=== PATIENT | female | born 1945 | race Two or more races ===

== ENCOUNTER 2017-10-03 08:46 | Outpatient (CLI) | payer OTHER | END 2017-10-03 08:54 | disposition home or self-care (01) | LOC: SONOGRAMA 08:46 | DX: E04.8 Other specified nontoxic goiter (principal) ==

== ENCOUNTER 2017-10-03 09:56 | Outpatient (CLI) | payer OTHER | END 2017-10-03 10:30 | disposition home or self-care (01) | LOC: NUCLEAR 09:56 | DX: E21.2 Other hyperparathyroidism (principal) | CPT/HCPCS: 78070; A9500 ==

== ENCOUNTER 2017-10-25 11:46 | Outpatient (CLI) | payer OTHER | END 2017-10-25 17:00 | disposition home or self-care (01) | LOC: RAD 11:46 | DX: S32.028A Other fracture of second lumbar vertebra, initial encounter for closed fracture (principal) ==

== ENCOUNTER 2017-12-02 10:38 | Outpatient (CLI) | payer OTHER | END 2017-12-02 10:43 | disposition home or self-care (01) | LOC: RAD 10:38 | DX: M54.5 Low back pain (principal); S32.000A Wedge compression fracture of unspecified lumbar vertebra, initial encounter for closed fracture ==

== ENCOUNTER 2018-06-16 11:48 | Outpatient (CLI) | payer OTHER | END 2018-06-16 12:59 | disposition home or self-care (01) | LOC: RAD 11:48 | DX: M05.79 Rheumatoid arthritis with rheumatoid factor of multiple sites without organ or systems involvement (principal) ==

== ENCOUNTER 2021-03-30 15:45 | Emergency (ER) | payer OTHER ==
[~2021-03-30] VITALS: Ht 154.9 cm; Wt 76.7 kg
[2021-03-30] MEDS ORDERED: WELLBUTRIN SR150 MG (15:54)
[2021-03-30] MEDS ORDERED: SYNTHROID112 MCG (15:54)
[2021-03-30] MEDS ORDERED: CYMBALTA30 MG (15:54)
[2021-03-30] MEDS ORDERED: NAMENDA10 MG (15:54)
[2021-03-30] MEDS ORDERED: TOPROL XL25 M1 (15:55)
[2021-03-30] MEDS ORDERED: COZAAR100 MG (15:55)
[2021-03-30] MEDS ORDERED: FOLIC ACID1 MG (15:55)
[2021-03-30] MEDS ORDERED: CRESTOR5 MG (15:55)
[2021-03-30] MEDS ORDERED: DEXILANT60 MG (15:55)
[2021-03-30] MEDS ORDERED: HYDROCHLOROTHIA25 MG (15:56)
== END 2021-03-30 18:31 | disposition home or self-care (01) ==
LOC: ER 15:45
DX: S01.02XA Laceration with foreign body of scalp, initial encounter (principal); R42 Dizziness and giddiness; W18.09XA Striking against other object with subsequent fall, initial encounter; Y93.89 Activity, other specified; Y92.018 Other place in single-family (private) house as the place of occurrence of the external cause; Y99.8 Other external cause status

== ENCOUNTER 2021-12-07 17:08 | Emergency (ER) | payer OTHER ==
[~2021-12-07] VITALS: Ht 152.4 cm; Wt 68.0 kg
[~2021-12-07 17:08] MED LIST: COZAAR100 MG; CRESTOR5 MG; CYMBALTA30 MG; DEXILANT60 MG; FOLIC ACID1 MG; HYDROCHLOROTHIA25 MG; NAMENDA10 MG; SYNTHROID112 MCG; TOPROL XL25 M1; WELLBUTRIN SR150 MG
== END 2021-12-07 21:16 | disposition home or self-care (01) ==
LOC: ER 17:08
DX: Z88.6 Allergy status to analgesic agent (principal); Z91.013 Allergy to seafood; I10 Essential (primary) hypertension; G30.9 Alzheimer's disease, unspecified; F02.80 Dementia in other diseases classified elsewhere, unspecified severity, without behavioral disturbance, psychotic disturbance, mood disturbance, and anxiety; M06.30 Rheumatoid nodule, unspecified site